=== PATIENT | male | born 1960 | race Two or more races ===

== ENCOUNTER 2018-04-14 13:56 | Inpatient (IN) | payer OTHER, MEDICAID ==
[~2018-04-14] VITALS: Ht 167.6 cm; Wt 138.3 kg
[~2018-04-14 13:56] MED LIST: LIDOCAINE HCL/PF 1% 2ML VIAL ONE
[2018-04-14] MEDS ORDERED: MORPHINE SULFATE 4 MG/ML CPJ (NOT FOR IM USE) IV STA (14:40)
[2018-04-14] MEDS ORDERED: ONDANSETRON HCL 4MG/2ML INJ IV STA (14:40)
[2018-04-14] MEDS ORDERED: METHYLPREDNISOLONE SOD SUCC 125 MG/2 ML VIAL IV STA (14:40)
[2018-04-14] MEDS ORDERED: LEVOFLOXACIN 750MG PREMIX 150 ML IV ONE (14:45)
[2018-04-14] MEDS ORDERED: ASPIRIN 81MG TABLET PO ONE (14:45)
[2018-04-14] MEDS ORDERED: FUROSEMIDE 40MG/4ML VIAL IV ONE (14:45)
[2018-04-14] MEDS ORDERED: IPRATROPIUM/ALBUTEROL 0.5-3(2.5)MG/3ML NEB HHN ONE (14:45)
[2018-04-14 15:14] LABS: BASOPHILS % 0.6 % (0.0-2.0); EOSINOPHILS % 1.3 % (0.0-5.0); LYMPHOCYTES % 24.7 % (20.0-50.0); MEAN CORPUSCULAR VOLUME 90.7 fL (80.0-94.0); MEAN PLATELET VOLUME 8.9 fl (7.4-10.4); NEUTROPHILS % 60.4 % (40.0-76.0); PLATELET 210 x1000/uL (130-400); RED BLOOD CELL COUNT 3.53 mill/uL (4.7-6.1); RED CELL DISTRIBUTION WIDTH 12.3 % (11.6-14.6)
[2018-04-14 15:15] LABS: BG BASE EXCESS 2.3 mmol/L (-2.0-2.0); BG CARBOXYHEMOGLOBIN 1.1 % (0.5-1.5); BG DEOXYHEMOGLOBIN 7.4 % (0.0-5.0); BG FRACTION INSPIRED OXYGEN 21; BG HCO3 ACT 26.7 mmol/L (22.0-26.0); BG METHEMOGLOBIN 0.3 % (0.0-1.5); BG OXYGEN SATURATION 92.5 % (92.0-98.5); BG OXYHEMOGLOBIN 91.2 % (94.0-97.0); BG PCO2 40.7 mmHg (35.0-45.0); BG PH 7.435 (7.350-7.450); BG PO2 62.7 mmHg (75.0-100.0); BG SAMPLE SITE RIGHT RADIAL; BG VENT MODE ROOM AIR
[2018-04-14 15:20] LABS: PROTHROMBIN TIME 10.4 sec (9.1-11.1)
[2018-04-14 15:24] LABS: CHLORIDE 104 mEq/L (98-107)
[2018-04-14 15:31] LABS: ETHANOL BLOOD < 10 mg/dL
[2018-04-14] MEDS ORDERED: DEXTROSE 50% WATER 50ML SYRINGE IV PRN (17:15)
[2018-04-14] MEDS ORDERED: DOCUSATE SODIUM 100MG CAPSULE PO PRN (17:15)
[2018-04-14] MEDS ORDERED: ONDANSETRON HCL 4MG/2ML INJ IV PRN (17:15)
[2018-04-14] MEDS ORDERED: IPRATROPIUM/ALBUTEROL 0.5-3(2.5)MG/3ML NEB INH PRN (17:15)
[2018-04-14] MEDS ORDERED: ACETAMINOPHEN 325MG TABLET PO PRN (17:15)
[2018-04-14] MEDS ORDERED: NITROGLYCERIN 0.4MG TABLET SL SL PRN (17:15)
[2018-04-14] MEDS ORDERED: NA PHOS,M-B/NA PHOS,DI-BA ENEMA 118ML PR PRN (17:15)
[2018-04-14] MEDS ORDERED: LORAZEPAM 0.5MG TABLET PO PRN (17:15)
[2018-04-14] MEDS ORDERED: CLONIDINE 0.1MG TABLET PO PRN (17:15)
[2018-04-14] MEDS ORDERED: MAGNESIUM/ALUMINUM HYDROXIDE/SIMETHICONE 30ML UDC PO PRN (17:15)
[2018-04-14] MEDS: MORPHINE SULFATE 4 MG/ML CPJ (NOT FOR IM USE) IV PRN (19:58)
[2018-04-14] MEDS: FUROSEMIDE 40MG/4ML VIAL IVP SCH (19:58)
[2018-04-14] MEDS: LISINOPRIL 20MG TABLET PO SCH (19:59)
[2018-04-14] MEDS: SPIRONOLACTONE 25MG TABLET PO SCH (19:59)
[2018-04-14] MEDS: FAMOTIDINE 20MG TABLET PO SCH (19:59)
[2018-04-14] MEDS: BLOOD SUGAR DIAGNOSTIC STRIP TEST SCH (20:15)
[2018-04-14 20:31] VITALS: BP 116/78
[2018-04-14] MEDS ORDERED: LOSA50TA20 MT (20:47)
[2018-04-14] MEDS ORDERED: FLUT1DIS3 INH (20:54)
[2018-04-14] MEDS ORDERED: FURO40TA5 PO (20:54)
[2018-04-14] MEDS ORDERED: NIFE60TA64 PO (20:54)
[2018-04-14] MEDS ORDERED: ASPI-1158 MT (20:54)
[2018-04-14] MEDS ORDERED: ATOR20TA65 MT (20:54)
[2018-04-14] MEDS ORDERED: GUAIFENESIN/DM 600MG/30MG ER TAB 12HR PO SCH (21:00)
[2018-04-14] MEDS ORDERED: ZOLPIDEM TARTRATE 5MG TABLET PO PRN (21:00)
[2018-04-14 22:00] LABS: TOTAL IRON BINDING CAPACITY 216 ug/dL (250-450)
[2018-04-14] MEDS ORDERED: INSULIN GLARGINE UD 100 UNITS/ML SYR SUBCUT SCH (22:00)
[2018-04-14] MEDS: ENOXAPARIN 40MG/0.4ML SYR SUBCUT SCH (22:01)
[2018-04-14] MEDS: METHYLPREDNISOLONE SOD SUCC 125 MG/2 ML VIAL IV SCH (22:02)
[2018-04-14] MEDS: INSULIN LISPRO 100 UNITS/ML SUBCUT SCH (22:07)
[2018-04-14] MEDS ORDERED: PROMETHAZINE/DEXTROMETHORPHAN 6.25-15MG/5ML BOTTLE 120ML PO PRN (23:00)
[2018-04-15] VITALS: BP 116/69
[2018-04-15 00:09] LABS: CREATINE KINASE 336 IU/L (39-308)
[2018-04-15] MEDS ORDERED: INSU100I28 SQ ×2 (00:51)
[2018-04-15] MEDS: IPRATROPIUM/ALBUTEROL 0.5-3(2.5)MG/3ML NEB HHN SCH ×6 (01:30→20:48)
[2018-04-15 04:00] VITALS: BP 130/87
[2018-04-15] MEDS: BLOOD SUGAR DIAGNOSTIC STRIP TEST SCH ×4 (06:21→21:00)
[2018-04-15] MEDS: METHYLPREDNISOLONE SOD SUCC 125 MG/2 ML VIAL IV SCH ×3 (06:21→21:30)
[2018-04-15] MEDS: INSULIN LISPRO 100 UNITS/ML SUBCUT SCH ×4 (06:38→21:35)
[2018-04-15 07:17] LABS: CREATINE KINASE 292 IU/L (39-308); CREATINE KINASE MB FRACTION 1.8 ng/mL (0.5-3.6)
[2018-04-15 08:00] VITALS: BP 140/84
[2018-04-15] MEDS: LISINOPRIL 20MG TABLET PO SCH ×2 (09:47→21:30)
[2018-04-15] MEDS: ENOXAPARIN 40MG/0.4ML SYR SUBCUT SCH ×2 (09:47→21:31)
[2018-04-15] MEDS: FAMOTIDINE 20MG TABLET PO SCH ×2 (09:48→21:28)
[2018-04-15] MEDS: ASPIRIN 325MG EC TABLET PO SCH (09:48)
[2018-04-15] MEDS: FUROSEMIDE 40MG/4ML VIAL IVP SCH ×2 (09:48→21:30)
[2018-04-15] MEDS: SPIRONOLACTONE 25MG TABLET PO SCH ×2 (09:48→21:30)
[2018-04-15 12:00] VITALS: BP 162/91
[2018-04-15] MEDS: INSULIN GLARGINE UD 100 UNITS/ML SYR SUBCUT SCH ×2 (13:12→21:33)
[2018-04-15] MEDS ORDERED: LEVOFLOXACIN 500MG PREMIX 100 ML IV SCH (14:00)
[2018-04-15] MEDS: TRAMADOL 50MG TABLET PO PRN ×2 (17:37→21:29)
[2018-04-15 20:00] VITALS: BP 145/88
[2018-04-16] VITALS: BP 149/85
[2018-04-16] MEDS: IPRATROPIUM/ALBUTEROL 0.5-3(2.5)MG/3ML NEB HHN SCH ×6 (00:44→21:22)
[2018-04-16 04:00] VITALS: BP 162/98
[2018-04-16] MEDS: METHYLPREDNISOLONE SOD SUCC 125 MG/2 ML VIAL IV SCH ×3 (06:06→21:20)
[2018-04-16] MEDS: INSULIN LISPRO 100 UNITS/ML SUBCUT SCH ×4 (06:11→21:26)
[2018-04-16] MEDS: BLOOD SUGAR DIAGNOSTIC STRIP TEST SCH ×4 (06:14→21:21)
[2018-04-16 07:17] LABS: HEMATOCRIT 30.5 % (42.0-52.0); HEMOGLOBIN 10.4 g/dL (14.0-18.0); MEAN CORPUSCULAR HEMOGLOBIN 31.1 pg (28.0-32.0); MEAN CORPUSCULAR VOLUME 90.7 fL (80.0-94.0); PLATELET 253 x1000/uL (130-400); RED BLOOD CELL COUNT 3.36 mill/uL (4.7-6.1); RED CELL DISTRIBUTION WIDTH 12.1 % (11.6-14.6)
[2018-04-16 07:41] VITALS: BP 165/95
[2018-04-16] MEDS: FUROSEMIDE 40MG/4ML VIAL IVP SCH ×2 (09:13→21:18)
[2018-04-16] MEDS: ASPIRIN 325MG EC TABLET PO SCH (09:13)
[2018-04-16] MEDS: SPIRONOLACTONE 25MG TABLET PO SCH ×2 (09:13→21:19)
[2018-04-16] MEDS: LISINOPRIL 20MG TABLET PO SCH ×2 (09:13→21:19)
[2018-04-16] MEDS: FAMOTIDINE 20MG TABLET PO SCH ×2 (09:14→21:19)
[2018-04-16] MEDS: ENOXAPARIN 40MG/0.4ML SYR SUBCUT SCH ×2 (09:16→21:20)
[2018-04-16] MEDS: MORPHINE SULFATE 4 MG/ML CPJ (NOT FOR IM USE) IV PRN (10:39)
[2018-04-16] MEDS: INSULIN GLARGINE UD 100 UNITS/ML SYR SUBCUT SCH ×2 (10:46→21:27)
[2018-04-16 12:19] LABS: CLARITY URINE CLEAR (CLEAR); COLOR URINE YELLOW (YELLOW); KETONES URINE NEGATIVE (NEGATIVE); LEUKOCYTE ESTERASE URINE NEGATIVE (NEGATIVE); NITRITE URINE NEGATIVE (NEGATIVE); OCCULT BLOOD URINE 2+ (NEGATIVE); PROTEIN URINE 3+ (NEGATIVE); SPECIFIC GRAVITY URINE 1.011 (1.005-1.030); UROBILINOGEN URINE 0.2 E.U./dL (0.2-1.0)
[2018-04-16 12:20] VITALS: BP 142/88
[2018-04-16 12:51] LABS: *AMPHETAMINES SCREEN URINE NEGATIVE (NEGATIVE); *BARBITURATES SCREEN URINE NEGATIVE (NEGATIVE); *BENZODIAZEPINES SCREEN URINE NEGATIVE (NEGATIVE); *COCAINE SCREEN URINE NEGATIVE (NEGATIVE); CANNABINOID URINE SCREEN NEGATIVE (NEGATIVE); METHADONE URINE SCREEN NEGATIVE (NEGATIVE); OPIATES URINE SCREEN PRESUMTIVE POSITIVE (NEGATIVE); PHENCYCLIDINE URINE SCREEN NEGATIVE (NEGATIVE)
[2018-04-16] MEDS ORDERED: LEVOFLOXACIN 500MG PREMIX 100 ML IV SCH (15:00)
[2018-04-16 15:32] VITALS: BP 155/90
[2018-04-16 20:00] VITALS: BP 152/99
[2018-04-16] MEDS: TRAMADOL 50MG TABLET PO PRN (21:19)
[2018-04-17] VITALS: BP 123/80
[2018-04-17] MEDS: IPRATROPIUM/ALBUTEROL 0.5-3(2.5)MG/3ML NEB HHN SCH ×3 (00:19→09:06)
[2018-04-17 04:00] VITALS: BP 173/100
[2018-04-17] MEDS: METHYLPREDNISOLONE SOD SUCC 125 MG/2 ML VIAL IV SCH (05:15)
[2018-04-17] MEDS: BLOOD SUGAR DIAGNOSTIC STRIP TEST SCH (06:00)
[2018-04-17] MEDS: INSULIN LISPRO 100 UNITS/ML SUBCUT SCH (06:05)
[2018-04-17 08:00] VITALS: BP 177/96
[2018-04-17] MEDS: ASPIRIN 325MG EC TABLET PO SCH (09:04)
[2018-04-17] MEDS: LISINOPRIL 20MG TABLET PO SCH (09:04)
[2018-04-17] MEDS: ENOXAPARIN 40MG/0.4ML SYR SUBCUT SCH (09:05)
[2018-04-17] MEDS: FUROSEMIDE 40MG/4ML VIAL IVP SCH (09:05)
[2018-04-17] MEDS: FAMOTIDINE 20MG TABLET PO SCH (09:05)
[2018-04-17] MEDS: SPIRONOLACTONE 25MG TABLET PO SCH (09:05)
[2018-04-17] MEDS: INSULIN GLARGINE UD 100 UNITS/ML SYR SUBCUT SCH (10:33)
[2018-04-17 11:15] VITALS: BP 155/87
== END 2018-04-17 11:37 | disposition home or self-care (01) | DRG 291 ==
LOC: ER 13:56 → 5WST 16:44 → EDBEDREQ 16:47 → EDBEDREQTM 16:47 → ENRESERV 17:03 → SUPCPDRO 17:11
PROVIDERS: ADMIT Internal Medicine; ATTEND Internal Medicine
DX: I13.0 Hypertensive heart and chronic kidney disease with heart failure and stage 1 through stage 4 chronic kidney disease, or unspecified chronic kidney disease (principal); E43 Unspecified severe protein-calorie malnutrition; I50.33 Acute on chronic diastolic (congestive) heart failure; J96.00 Acute respiratory failure, unspecified whether with hypoxia or hypercapnia; N17.0 Acute kidney failure with tubular necrosis; J44.1 Chronic obstructive pulmonary disease with (acute) exacerbation; Z68.42 Body mass index [BMI] 45.0-49.9, adult; D63.8 Anemia in other chronic diseases classified elsewhere; E11.22 Type 2 diabetes mellitus with diabetic chronic kidney disease; E11.65 Type 2 diabetes mellitus with hyperglycemia; E66.9 Obesity, unspecified; F10.21 Alcohol dependence, in remission; N18.9 Chronic kidney disease, unspecified; Z79.4 Long term (current) use of insulin; Z79.899 Other long term (current) drug therapy; Z87.891 Personal history of nicotine dependence; Z88.8 Allergy status to other drugs, medicaments and biological substances
CPT/HCPCS: 36415; 36600; 71045; 80048; 80061; 80305; 82375; 82550; 82553; 82607; 82746; 82805; 82962; 83036; 83540; 83550; 83880; 84484; 85027; 93005; 93306; 93970; 94640; 96374; 96375; 97162; 97165; 99285; G0482; J1650; J1815; J1940; J1956; J2270; J2405; J2930; J3490; J7050; J7620

== ENCOUNTER 2020-09-02 11:53 | Inpatient (IN) | payer OTHER, MEDICAID ==
[~2020-09-02] VITALS: Ht 167.6 cm; Wt 85.7 kg
[~2020-09-02 11:53] MED LIST changes: +ASPI-1406 MT; +ATOR20TA65 MT; +FLUT1DIS3 INH; +FURO40TA5 PO; +INSU100I28 SQ; -LIDOCAINE HCL/PF 1% 2ML VIAL ONE; +LOSA50TA41 MT; +NIFE-32 PO
[2020-09-02 15:38] LABS: BASOPHILS % 0.5 % (0.0-2.0); EOSINOPHILS % 2.3 % (0.0-5.0); HEMATOCRIT. 27.8 % (42.0-52.0); HEMOGLOBIN. 9.1 g/dL (14.0-18.0); LYMPHOCYTES % 29.2 % (20.0-50.0); MEAN CORPUSCULAR VOLUME 88.5 fL (80.0-94.0); MEAN PLATELET VOLUME 9.1 fl (7.4-10.4); MONOCYTES % 4.6 % (2.0-8.0); NEUTROPHILS % 63.4 % (40.0-76.0); PLATELET 269 x1000/uL (130-400); RED BLOOD CELL COUNT 3.14 mill/uL (4.7-6.1); RED CELL DISTRIBUTION WIDTH 12.1 % (11.6-14.6)
[2020-09-02 15:43] LABS: CHLORIDE 106 mEq/L (98-107)
[2020-09-02 15:45] LABS: PROTHROMBIN TIME 10.9 sec (9.6-11.0)
[2020-09-02] MEDS ORDERED: FUROSEMIDE 40MG/4ML VIAL IVP NR (16:00)
[2020-09-02] MEDS ORDERED: IPRATROPIUM/ALBUTEROL 0.5-3(2.5)MG/3ML NEB NEB PRN (20:15)
[2020-09-02] MEDS ORDERED: GUAIFENESIN 200MG/10ML SUGAR FREE UDC PO PRN (20:15)
[2020-09-02] MEDS ORDERED: DOCUSATE SODIUM 100MG CAPSULE PO PRN (20:15)
[2020-09-02] MEDS ORDERED: NA PHOS,M-B/NA PHOS,DI-BA ENEMA 118ML PR PRN (20:15)
[2020-09-02] MEDS ORDERED: MORPHINE SULFATE 2 MG/ML CPJ (NOT FOR IM USE) IV PRN (20:15)
[2020-09-02] MEDS ORDERED: ENOXAPARIN 40MG/0.4ML SYR SUBCUT SCH (20:15)
[2020-09-02] MEDS ORDERED: DIPHENHYDRAMINE 50MG/ML VIAL IV PRN (20:15)
[2020-09-02] MEDS ORDERED: ONDANSETRON HCL 4MG/2ML INJ IV PRN (20:15)
[2020-09-02] MEDS ORDERED: LORAZEPAM 2MG/ML CPJ IV PRN (20:15)
[2020-09-02] MEDS ORDERED: HYDROCODONE/ACETAMINOPHEN 5/325MG TABLET PO PRN (20:15)
[2020-09-02] MEDS ORDERED: MAGNESIUM/ALUMINUM HYDROXIDE/SIMETHICONE 30ML UDC PO PRN (20:15)
[2020-09-02] MEDS ORDERED: ACETAMINOPHEN 325MG TABLET PO PRN (20:15)
[2020-09-02] MEDS: CLONIDINE 0.1MG TABLET PO PRN (20:47)
[2020-09-02 22:00] VITALS: BP 167/86
[2020-09-02] MEDS ORDERED: DEXTROSE 50% WATER 50ML SYRINGE IV PRN (22:30)
[2020-09-02] MEDS: ENOXAPARIN 30MG/0.3ML SYR SUBCUT SCH (22:43)
[2020-09-02] MEDS ORDERED: LOSA100T32 MT (23:27)
[2020-09-02] MEDS ORDERED: FURO80TA3 MT (23:28)
[2020-09-02 23:42] LABS: CHLORIDE 108 mEq/L (98-107)
[2020-09-03 04:00] VITALS: BP 140/84
[2020-09-03 06:59] LABS: BASOPHILS % 0.7 % (0.0-2.0); EOSINOPHILS % 2.7 % (0.0-5.0); HEMATOCRIT. 27.3 % (42.0-52.0); LYMPHOCYTES % 33.2 % (20.0-50.0); MEAN CORPUSCULAR HEMOGLOBIN 29.4 pg (28.0-32.0); MEAN CORPUSCULAR VOLUME 89.4 fL (80.0-94.0); MEAN PLATELET VOLUME 9.1 fl (7.4-10.4); MONOCYTES % 5.6 % (2.0-8.0); NEUTROPHILS % 57.8 % (40.0-76.0); PLATELET 242 x1000/uL (130-400); RED BLOOD CELL COUNT 3.05 mill/uL (4.7-6.1); RED CELL DISTRIBUTION WIDTH 12.5 % (11.6-14.6)
[2020-09-03 07:02] LABS: CHLORIDE 109 mEq/L (98-107)
[2020-09-03] MEDS: FUROSEMIDE 40MG/4ML VIAL IV SCH ×2 (07:07→16:57)
[2020-09-03] MEDS: BLOOD SUGAR DIAGNOSTIC STRIP TEST SCH ×4 (07:08→20:46)
[2020-09-03 07:43] LABS: LDL CHOLESTEROL 120 mg/dL (5-100)
[2020-09-03 07:45] LABS: HDL CHOLESTEROL 41 mg/dL (40-59); T4 FREE 0.89 ng/dL (0.76-1.46)
[2020-09-03 08:00] VITALS: BP 143/85
[2020-09-03] MEDS ORDERED: *PATIENT'S OWN MEDICATION STORAGE XX SCH (08:00)
[2020-09-03] MEDS: ASPIRIN 81MG EC TABLET PO SCH (08:09)
[2020-09-03] MEDS: INSULIN LISPRO 100 UNITS/ML SUBCUT SCH ×4 (08:10→20:50)
[2020-09-03 12:00] VITALS: BP 172/96
[2020-09-03] MEDS: CLONIDINE 0.1MG TABLET PO PRN ×2 (12:00→20:45)
[2020-09-03 16:00] VITALS: BP 148/81
[2020-09-03 20:00] VITALS: BP 175/95
[2020-09-03] MEDS: ENOXAPARIN 30MG/0.3ML SYR SUBCUT SCH (20:34)
[2020-09-04] VITALS: BP 151/91
[2020-09-04 04:00] VITALS: BP 147/87
[2020-09-04] MEDS: FUROSEMIDE 40MG/4ML VIAL IV SCH (06:23)
[2020-09-04] MEDS: BLOOD SUGAR DIAGNOSTIC STRIP TEST SCH (06:23)
[2020-09-04 07:11] LABS: BASOPHILS % 0.6 % (0.0-2.0); EOSINOPHILS % 2.6 % (0.0-5.0); HEMATOCRIT. 26.5 % (42.0-52.0); HEMOGLOBIN. 8.8 g/dL (14.0-18.0); LYMPHOCYTES % 33.2 % (20.0-50.0); MEAN CORPUSCULAR VOLUME 87.6 fL (80.0-94.0); MEAN PLATELET VOLUME 8.9 fl (7.4-10.4); MONOCYTES % 5.4 % (2.0-8.0); NEUTROPHILS % 58.2 % (40.0-76.0); PLATELET 235 x1000/uL (130-400); RED BLOOD CELL COUNT 3.02 mill/uL (4.7-6.1); RED CELL DISTRIBUTION WIDTH 11.8 % (11.6-14.6)
[2020-09-04] MEDS: INSULIN LISPRO 100 UNITS/ML SUBCUT SCH (07:43)
[2020-09-04] MEDS: ASPIRIN 81MG EC TABLET PO SCH (08:46)
[2020-09-04 09:15] LABS: T4 FREE 1.02 ng/dL (0.76-1.46)
== END 2020-09-04 11:10 | disposition left against medical advice (07) | DRG 280 ==
LOC: ER 11:53 → 6WST 15:48 → EDBEDREQTM 15:51 → EDBEDREQ 15:51 → ENRESERV 15:58
PROVIDERS: ADMIT Internal Medicine; ATTEND Internal Medicine
DX: I21.4 Non-ST elevation (NSTEMI) myocardial infarction (principal); J96.00 Acute respiratory failure, unspecified whether with hypoxia or hypercapnia; I50.23 Acute on chronic systolic (congestive) heart failure; N17.9 Acute kidney failure, unspecified; N18.5 Chronic kidney disease, stage 5; I13.2 Hypertensive heart and chronic kidney disease with heart failure and with stage 5 chronic kidney disease, or end stage renal disease; E66.9 Obesity, unspecified; E11.22 Type 2 diabetes mellitus with diabetic chronic kidney disease; E11.40 Type 2 diabetes mellitus with diabetic neuropathy, unspecified; F17.200 Nicotine dependence, unspecified, uncomplicated; E78.5 Hyperlipidemia, unspecified; D63.8 Anemia in other chronic diseases classified elsewhere; Z53.29 Procedure and treatment not carried out because of patient's decision for other reasons; I25.10 Atherosclerotic heart disease of native coronary artery without angina pectoris; Z79.51 Long term (current) use of inhaled steroids; Z79.899 Other long term (current) drug therapy; Z79.4 Long term (current) use of insulin; Z88.8 Allergy status to other drugs, medicaments and biological substances
CPT/HCPCS: 36415; 71045; 80048; 80053; 80061; 82962; 83036; 83880; 84439; 84443; 84484; 85025; 93005; 93306; 99285; J1650; J1815; J1940

== ENCOUNTER 2020-09-25 11:09 | Inpatient (IN) | payer OTHER, MEDICAID ==
[~2020-09-25] VITALS: Ht 170.2 cm; Wt 122.5 kg
[~2020-09-25 11:09] MED LIST changes: -ASPI-1406 MT; -ATOR20TA65 MT; -FLUT1DIS3 INH; -FURO40TA5 PO; +FURO80TA3 MT; +LOSA100T32 MT; -LOSA50TA41 MT; -NIFE-32 PO
[2020-09-25 12:26] LABS: CHLORIDE 108 mEq/L (98-107)
[2020-09-25 13:30] LABS: CLARITY URINE CLEAR (CLEAR); COLOR URINE YELLOW (YELLOW); KETONES URINE NEGATIVE (NEGATIVE); LEUKOCYTE ESTERASE URINE TRACE (NEGATIVE); NITRITE URINE NEGATIVE (NEGATIVE); OCCULT BLOOD URINE 2+ (NEGATIVE); PH URINE 6.5 (4.5-8.0); PROTEIN URINE 3+ (NEGATIVE); UROBILINOGEN URINE 0.2 E.U./dL (0.2-1.0)
[2020-09-25] MEDS ORDERED: LORAZEPAM 2MG/ML CPJ IV PRN (13:45)
[2020-09-25] MEDS ORDERED: ONDANSETRON HCL 4MG/2ML INJ IV PRN (13:45)
[2020-09-25] MEDS ORDERED: MORPHINE SULFATE 2 MG/ML CPJ (NOT FOR IM USE) IV PRN (13:45)
[2020-09-25] MEDS ORDERED: HYDROCODONE/ACETAMINOPHEN 5/325MG TABLET PO PRN (13:45)
[2020-09-25 14:45] LABS: BASOPHILS % 0.3 % (0.0-2.0); EOSINOPHILS % 0.5 % (0.0-5.0); HEMATOCRIT. 27.7 % (42.0-52.0); MEAN CORPUSCULAR HEMOGLOBIN 28.8 pg (28.0-32.0); MEAN CORPUSCULAR VOLUME 88.5 fL (80.0-94.0); MEAN PLATELET VOLUME 8.3 fl (7.4-10.4); MONOCYTES % 5.3 % (2.0-8.0); NEUTROPHILS % 74.9 % (40.0-76.0); PLATELET 292 x1000/uL (130-400); RED BLOOD CELL COUNT 3.12 mill/uL (4.7-6.1); RED CELL DISTRIBUTION WIDTH 12.3 % (11.6-14.6)
[2020-09-25] MEDS ORDERED: MAGNESIUM/ALUMINUM HYDROXIDE/SIMETHICONE 30ML UDC PO NR (14:45)
[2020-09-25] MEDS: METOPROLOL TARTRATE 25MG TABLET PO SCH ×2 (14:56→23:19)
[2020-09-25] MEDS ORDERED: MAGNESIUM/ALUMINUM HYDROXIDE/SIMETHICONE 30ML UDC PO ONE (15:00)
[2020-09-25] MEDS ORDERED: ENOXAPARIN 40MG/0.4ML SYR SUBCUT SCH (15:00)
[2020-09-25] MEDS ORDERED: FUROSEMIDE 40MG/4ML VIAL IVP ONE (15:00)
[2020-09-25] MEDS ORDERED: FUROSEMIDE 100MG/10ML VIAL IVP ONE (15:00)
[2020-09-25] MEDS ORDERED: ENOXAPARIN 30MG/0.3ML SYR SUBCUT SCH (16:00)
[2020-09-25] MEDS: IPRATROPIUM/ALBUTEROL 0.5-3(2.5)MG/3ML NEB NEB SCH (18:58)
[2020-09-25] MEDS ORDERED: DEXTROSE 50% WATER 50ML SYRINGE IV PRN (22:00)
[2020-09-26] VITALS (7 sets, daily range): BP systolic 142–188; BP diastolic 80–98
[2020-09-26] MEDS: CLONIDINE 0.1MG TABLET PO PRN ×2 (05:04→12:28)
[2020-09-26] MEDS: INSULIN LISPRO 100 UNITS/ML SUBCUT SCH ×4 (07:15→21:00)
[2020-09-26 07:25] LABS: BASOPHILS % 0.4 % (0.0-2.0); HEMATOCRIT. 24.9 % (42.0-52.0); HEMOGLOBIN. 8.2 g/dL (14.0-18.0); LYMPHOCYTES % 31.1 % (20.0-50.0); MEAN CORPUSCULAR HEMOGLOBIN 29.3 pg (28.0-32.0); MEAN CORPUSCULAR VOLUME 89.2 fL (80.0-94.0); MEAN PLATELET VOLUME 8.8 fl (7.4-10.4); MONOCYTES % 5.4 % (2.0-8.0); NEUTROPHILS % 62.1 % (40.0-76.0); PLATELET 264 x1000/uL (130-400); RED CELL DISTRIBUTION WIDTH 12.4 % (11.6-14.6)
[2020-09-26] MEDS: BLOOD SUGAR DIAGNOSTIC STRIP TEST SCH ×4 (07:42→21:22)
[2020-09-26] MEDS: IPRATROPIUM/ALBUTEROL 0.5-3(2.5)MG/3ML NEB NEB SCH ×3 (08:31→20:56)
[2020-09-26] MEDS: METOPROLOL TARTRATE 25MG TABLET PO SCH ×2 (08:50→21:28)
[2020-09-26] MEDS: FOLIC ACID 1MG TABLET PO SCH (08:50)
[2020-09-26 09:14] LABS: INR 1.1; PROTHROMBIN TIME 11.5 sec (9.6-11.0)
[2020-09-26] MEDS ORDERED: HEPARIN 1000 UNITS/ML 10ML ONE (09:15)
[2020-09-26] MEDS ORDERED: LIDOCAINE HCL 1% 20ML VIAL (Pyxis) INJ ONE (09:15)
[2020-09-26] MEDS: MAGNESIUM/ALUMINUM HYDROXIDE/SIMETHICONE 30ML UDC PO PRN ×2 (12:10→21:28)
[2020-09-26] MEDS ORDERED: DOCUSATE SODIUM 100MG CAPSULE PO PRN (15:30)
[2020-09-26] MEDS ORDERED: DEXTROSE 50% WATER 50ML SYRINGE IV PRN (15:30)
[2020-09-26] MEDS ORDERED: ENOXAPARIN 40MG/0.4ML SYR SUBCUT SCH (17:00)
[2020-09-26] MEDS: LOSARTAN POTASSIUM 100 MG TABLET PO SCH (17:05)
[2020-09-27] VITALS: BP 152/83
[2020-09-27] MEDS: IPRATROPIUM/ALBUTEROL 0.5-3(2.5)MG/3ML NEB NEB SCH ×3 (00:48→20:51)
[2020-09-27 04:00] VITALS: BP 153/78
[2020-09-27] MEDS: BLOOD SUGAR DIAGNOSTIC STRIP TEST SCH ×7 (06:04→21:40)
[2020-09-27] MEDS: INSULIN LISPRO 100 UNITS/ML SUBCUT SCH ×4 (06:25→21:37)
[2020-09-27 07:58] LABS: BASOPHILS % 0.7 % (0.0-2.0); EOSINOPHILS % 1.4 % (0.0-5.0); HEMATOCRIT. 24.6 % (42.0-52.0); HEMOGLOBIN. 8.2 g/dL (14.0-18.0); LYMPHOCYTES % 29.3 % (20.0-50.0); MEAN CORPUSCULAR HEMOGLOBIN 29.6 pg (28.0-32.0); MEAN CORPUSCULAR VOLUME 89.1 fL (80.0-94.0); MEAN PLATELET VOLUME 9.2 fl (7.4-10.4); MONOCYTES % 6.8 % (2.0-8.0); NEUTROPHILS % 61.8 % (40.0-76.0); PLATELET 240 x1000/uL (130-400); RED BLOOD CELL COUNT 2.77 mill/uL (4.7-6.1); RED CELL DISTRIBUTION WIDTH 12.3 % (11.6-14.6)
[2020-09-27 08:00] VITALS: BP 157/79
[2020-09-27] MEDS: LOSARTAN POTASSIUM 100 MG TABLET PO SCH (08:05)
[2020-09-27] MEDS: METOPROLOL TARTRATE 25MG TABLET PO SCH ×2 (08:05→21:40)
[2020-09-27 08:12] LABS: CHLORIDE 107 mEq/L (98-107)
[2020-09-27 08:27] LABS: PHOSPHORUS 3.8 mg/dL (2.5-4.9)
[2020-09-27] MEDS: FOLIC ACID 1MG TABLET PO SCH (09:10)
[2020-09-27] MEDS: INSULIN GLARGINE UD 100 UNITS/ML SYR SUBCUT SCH (09:11)
[2020-09-27 12:00] VITALS: BP 163/74
[2020-09-27 16:00] VITALS: BP 187/95
[2020-09-27] MEDS: CLONIDINE 0.1MG TABLET PO PRN (17:29)
[2020-09-27 20:00] VITALS: BP 157/85
[2020-09-27] MEDS ORDERED: EPOETIN ALFA-EPBX 4,000 UNIT/ML VIAL SUBCUT NR (21:00)
[2020-09-28] VITALS: BP 170/89
[2020-09-28] MEDS: IPRATROPIUM/ALBUTEROL 0.5-3(2.5)MG/3ML NEB NEB SCH ×4 (01:53→20:38)
[2020-09-28 04:00] VITALS: BP 179/82
[2020-09-28] MEDS: CLONIDINE 0.1MG TABLET PO PRN ×2 (05:58→21:14)
[2020-09-28 07:06] LABS: BASOPHILS % 0.5 % (0.0-2.0); EOSINOPHILS % 1.7 % (0.0-5.0); HEMATOCRIT. 27.2 % (42.0-52.0); HEMOGLOBIN. 8.9 g/dL (14.0-18.0); LYMPHOCYTES % 32.1 % (20.0-50.0); MEAN CORPUSCULAR HEMOGLOBIN 29.8 pg (28.0-32.0); MEAN CORPUSCULAR VOLUME 91.5 fL (80.0-94.0); MEAN PLATELET VOLUME 9.1 fl (7.4-10.4); MONOCYTES % 6.2 % (2.0-8.0); NEUTROPHILS % 59.5 % (40.0-76.0); PLATELET 227 x1000/uL (130-400); RED BLOOD CELL COUNT 2.97 mill/uL (4.7-6.1); RED CELL DISTRIBUTION WIDTH 12.2 % (11.6-14.6)
[2020-09-28] MEDS: INSULIN LISPRO 100 UNITS/ML SUBCUT SCH ×4 (07:15→21:17)
[2020-09-28] MEDS: BLOOD SUGAR DIAGNOSTIC STRIP TEST SCH ×4 (07:43→21:00)
[2020-09-28 08:00] VITALS: BP 145/75
[2020-09-28] MEDS: METOPROLOL TARTRATE 25MG TABLET PO SCH ×2 (08:22→21:14)
[2020-09-28] MEDS: FOLIC ACID 1MG TABLET PO SCH (08:22)
[2020-09-28] MEDS: LOSARTAN POTASSIUM 100 MG TABLET PO SCH (08:22)
[2020-09-28] MEDS: INSULIN GLARGINE UD 100 UNITS/ML SYR SUBCUT SCH (09:51)
[2020-09-28 12:00] VITALS: BP 140/71
[2020-09-28] MEDS: MAGNESIUM/ALUMINUM HYDROXIDE/SIMETHICONE 30ML UDC PO PRN (12:48)
[2020-09-28 16:00] VITALS: BP 152/85
[2020-09-28 20:00] VITALS: BP 171/90
[2020-09-29] VITALS: BP 161/76
[2020-09-29] MEDS: IPRATROPIUM/ALBUTEROL 0.5-3(2.5)MG/3ML NEB NEB SCH ×2 (02:43→08:57)
[2020-09-29 04:00] VITALS: BP 166/82
[2020-09-29] MEDS: CLONIDINE 0.1MG TABLET PO PRN (04:38)
[2020-09-29] MEDS: BLOOD SUGAR DIAGNOSTIC STRIP TEST SCH ×2 (06:10→12:24)
[2020-09-29] MEDS: INSULIN LISPRO 100 UNITS/ML SUBCUT SCH ×2 (06:27→12:15)
[2020-09-29 08:00] VITALS: BP 128/60
[2020-09-29] MEDS: FOLIC ACID 1MG TABLET PO SCH (10:01)
[2020-09-29] MEDS: LOSARTAN POTASSIUM 100 MG TABLET PO SCH (10:01)
[2020-09-29] MEDS: METOPROLOL TARTRATE 25MG TABLET PO SCH (10:03)
[2020-09-29] MEDS: INSULIN GLARGINE UD 100 UNITS/ML SYR SUBCUT SCH (10:04)
[2020-09-29 12:00] VITALS: BP 126/74
[2020-09-29 12:33] VITALS: BP 126/74
== END 2020-09-29 13:19 | disposition home or self-care (01) | DRG 291 ==
LOC: ER 11:09 → 5WST 11:36 → ENRESERV 16:07
PROVIDERS: ADMIT Internal Medicine Nephrology; ATTEND Internal Medicine Nephrology
PROC: 02HV33Z Insertion of Infusion Device into Superior Vena Cava, Percutaneous Approach (ICD-10-PCS; principal; 2020-09-26)
PROC: B548ZZA Ultrasonography of Superior Vena Cava, Guidance (ICD-10-PCS; 2020-09-26)
PROC: B518ZZA Fluoroscopy of Superior Vena Cava, Guidance (ICD-10-PCS; 2020-09-26)
PROC: 5A1D70Z Performance of Urinary Filtration, Intermittent, Less than 6 Hours Per Day (ICD-10-PCS; 2020-09-28)
PROC: 5A1D70Z Performance of Urinary Filtration, Intermittent, Less than 6 Hours Per Day (ICD-10-PCS; 2020-09-29)
DX: I13.0 Hypertensive heart and chronic kidney disease with heart failure and stage 1 through stage 4 chronic kidney disease, or unspecified chronic kidney disease (principal); I50.33 Acute on chronic diastolic (congestive) heart failure; Z68.41 Body mass index [BMI] 40.0-44.9, adult; E11.40 Type 2 diabetes mellitus with diabetic neuropathy, unspecified; E11.22 Type 2 diabetes mellitus with diabetic chronic kidney disease; Z20.822 Contact with and (suspected) exposure to COVID-19; J44.9 Chronic obstructive pulmonary disease, unspecified; D63.8 Anemia in other chronic diseases classified elsewhere; E66.9 Obesity, unspecified; I25.10 Atherosclerotic heart disease of native coronary artery without angina pectoris; N18.9 Chronic kidney disease, unspecified; Z99.2 Dependence on renal dialysis; I25.2 Old myocardial infarction; Z88.8 Allergy status to other drugs, medicaments and biological substances; Z71.3 Dietary counseling and surveillance
CPT/HCPCS: 36415; 36556; 71045; 76937; 77001; 80048; 81003; 82270; 82728; 82962; 83036; 83735; 83880; 84100; 84484; 85025; 87426; 93005; 93970; 94640; 97166; 99285; C1752; C1887; J0885; J1644; J1650; J1815; J1940; J3490